=== PATIENT | male | born 1975 | race Two or more races ===

== ENCOUNTER 2021-07-09 12:45 | Emergency (ER) | payer OTHER ==
[~2021-07-09] VITALS: Ht 165.1 cm; Wt 83.9 kg
[2021-07-09] MEDS ORDERED: MYLANTA GAS MIN42 MG PO (13:09)
[2021-07-09] MEDS ORDERED: SKELAGESIC PO (15:27)
== END 2021-07-09 16:00 | disposition home or self-care (01) ==
LOC: ER 12:45
DX: M25.572 Pain in left ankle and joints of left foot (principal); M79.672 Pain in left foot